=== PATIENT | female | born 1965 | race Caucasian/White ===

== ENCOUNTER 2018-07-04 11:40 | Emergency (ER) | payer OTHER ==
--- NOTE | 2018-07-04 12:05 | EDPHY ---
H & P Stated Complaint: lung pain and back pain for 3wks or so. Time Seen by Provider: 07/04/18 11:46 HPI/ROS: Chief Complaint: Back pain, cough, shortness of breath HPI: 53-year-old woman presenting with several weeks of worsening left upper back pain, occasional shortness of breath, cough. Patient states that feels like when she has had pneumonia before. She is also complaining of bilateral leg swelling. She says symptoms have been going on since she moved to [place] from [place] about a month ago. They have been worsening. She is unable to sleep because of the pain. Is occasionally hurts to take a deep breath. Cough is productive of occasional greenish sputum. Some subjective chills, no fever. No substernal chest pain. It is nonradiating. It does sometimes hurt to move around. She has been taking ibuprofen daily without any relief. No nausea or vomiting. No abdominal pain. Also complaining of a mild headache and general myalgias. ROS: 10 systems were reviewed and were negative except those elements noted in the HPI. PMH: Hypertension, hyperlipidemia, chronic back pain status post lumbar fusion Social History: Positive smoking Family History: non-contributory Physical Exam: Gen: Awake, Alert, No Distress HEENT: Nose: no rhinorrhea Eyes: PERRLA, EOMI Mouth: Moist mucosa Neck: Supple, no JVD Chest: nontender, lungs clear to auscultation Heart: S1, S2 normal, no murmur Abd: Soft, non-tender, no guarding Back: no CVA tenderness, no midline tenderness Ext: no edema, non-tender Skin: no rash Neuro: CN II-XII intact, Sensation grossly intact, Strength 5/5 in bilateral upper and lower extremities - Personal History LMP (Females 10-55): Hysterectomy Current Tetanus/Diphtheria Vaccine: No Current Tetanus Diphtheria and Acellular Pertussis (TDAP): No - Medical/Surgical History Other PMH: hysterectomy. C sec x 2. spinal fusion [id number]. Cholecystectomy. Hernia of diaphraghm - Social History Smoking Status: Light smoker Constitutional: Initial Vital Signs Temperature (C) 36.7 C 07/04/18 11:47 Heart Rate 76 07/04/18 11:47 Respiratory Rate 16 07/04/18 11:47 Blood Pressure 131/59 H 07/04/18 11:47 O2 Sat (%) 97 07/04/18 11:47 Allergies/Adverse Reactions: Penicillins Allergy (Verified 07/04/18 11:54) Home Medications: Medication Instructions Recorded Albuterol [Proventil Inhaler HFA 1 - 2 puffs IH Q4H PRN #1 mdi 07/04/18 (*)] Lidocaine 4% 07/04/18 Medical Decision Making - Diagnostics Imaging Results: Imaging Impressions Chest X-Ray 07/04/18 13:07 Impression: Mild perihilar bronchitis, without a focal infiltrate. ED Course/Re-evaluation: Patient's x-rays consistent with mild bronchitis. Her lungs are clear. Laboratory evaluations are otherwise unremarkable. Will discharge with albuterol inhaler with spacer. She will be referred to outpatient follow-up with primary care. - Data Points Laboratory Results: 07/04/18 12:20 POC Sodium 142 mEq/L mEq/L (135-145) POC Potassium 3.9 mEq/L mEq/L (3.3-5.0) POC Chloride 105.0 mEq/L mEq/L (97-110) POC Total CO2 25 mEq/L mEq/L (22-31) POC BUN 13 mg/dL mg/dL (7-23) POC Creatinine 0.9 mg/dL mg/dL (0.6-1.0) POC Glucose 92 mg/dL mg/dL (70-100) POC Calcium 9.4 mg/dL mg/dL (8.5-10.4) Point of Care Test Results: CBC CBC Collection Date 07/04/18 CBC Collection Time 13:10 WBC 5.9 RBC 4.55 HGB 15.1 HCT 43.9 PLT 327 Neut # 2.4 Neut 40 LYMPH # 3.0 LYMPH 50.9 Other WBC # 0.5 Other WBC 9.1 MCV 96.5 Chemistry 07/04/18 12:20 POC Sodium 142 mEq/L mEq/L (135-145) POC Potassium 3.9 mEq/L mEq/L (3.3-5.0) POC Chloride 105.0 mEq/L mEq/L (97-110) POC Total CO2 25 mEq/L mEq/L (22-31) POC BUN 13 mg/dL mg/dL (7-23) POC Creatinine 0.9 mg/dL mg/dL (0.6-1.0) POC Glucose 92 mg/dL mg/dL (70-100) POC Calcium 9.4 mg/dL mg/dL (8.5-10.4) D-Dimer D-Dimer Collection Date 07/04/18 D-Dimer Collection Time 12:10 D-Dimer (ng/ml) 110 Departure - Departure Disposition: Home, Routine, Self-Care Clinical Impression: Acute bronchitis Condition: Good Instructions: Acute Bronchitis (ED) Additional Instructions: Follow up with primary care physician in 3-4 days for re-evaluation. Return to the emergency department for increasing chest pain, shortness of breath, fevers, or any other concerns. Referrals: Vale Rivera MD [Medical Doctor] - As per Instructions Prescriptions: Albuterol [Proventil Inhaler HFA (*)] 1 - 2 puffs IH Q4H PRN #1 mdi PRN Reason: Wheezing
[2018-07-04 14:06] VITALS: BP 116/69
== END 2018-07-04 14:16 | disposition home or self-care (01) ==
LOC: CED 11:40
DX: J20.9 Acute bronchitis, unspecified (principal); F17.200 Nicotine dependence, unspecified, uncomplicated
CPT/HCPCS: 71046-PO; 80048-PO

== ENCOUNTER → 2018-09-12 | Outpatient (CLI) | payer OTHER | LOC: CIMAGING 12:59 | PROVIDERS: ATTEND Family Medicine | DX: R10.11 Right upper quadrant pain (principal); J98.6 Disorders of diaphragm; Z87.19 Personal history of other diseases of the digestive system | CPT/HCPCS: 71046-PO ==

== ENCOUNTER → 2018-10-12 | Outpatient (CLI) | payer OTHER, MEDICAID | LOC: FIMAGING 08:04 | PROVIDERS: ATTEND Surgery | DX: K21.9 Gastro-esophageal reflux disease without esophagitis (principal); K44.9 Diaphragmatic hernia without obstruction or gangrene; R93.3 Abnormal findings on diagnostic imaging of other parts of digestive tract ==

== ENCOUNTER → 2018-10-19 | Outpatient (CLI) | payer OTHER, MEDICAID ==
[~2018-10-19] MED LIST: IOPAMIDOL (ISOVUE-300) 100 ML BTL ONE
== END ==
LOC: CIMAGING 08:46
PROVIDERS: ATTEND Surgery
DX: N28.1 Cyst of kidney, acquired (principal); N20.0 Calculus of kidney; N28.81 Hypertrophy of kidney; K76.0 Fatty (change of) liver, not elsewhere classified; Z90.49 Acquired absence of other specified parts of digestive tract; Z98.890 Other specified postprocedural states
CPT/HCPCS: 74177; Q9967

== ENCOUNTER 2018-11-02 05:53 | Day surgery (SDC) | payer OTHER, MEDICAID ==
[2018-11-02] MEDS ORDERED: LR 1,000 ML IV ONE (06:07)
--- NOTE | 2018-11-02 07:10 | PDHPUP ---
History & Physical Update H&P update statement: This history and physical update is based on an assessment of the patient which was completed after admission or registration (within 24 hours), but prior to the surgery/procedure. H&P update: H&P reviewed & patient examined, no change in patient's condition since H&P completed
[2018-11-02] MEDS ORDERED: PROPOFOL/EMULSION 500 MG/50 ML BOTTLE IV ONE (07:28)
[2018-11-02] MEDS ORDERED: MIDAZOLAM 2 MG/2 ML VIAL ONE (07:28)
[2018-11-02] MEDS ORDERED: MAGNESIUM SULFATE 1 GM/2 ML VIAL ONE (07:42)
[2018-11-02] MEDS ORDERED: PROPOFOL 200 MG/20 ML VIAL ONE (07:52)
[2018-11-02] MEDS ORDERED: ONDANSETRON 4 MG/2 ML VIAL IVP PRN (08:04)
[2018-11-02] MEDS ORDERED: ALBUTEROL 3 ML DEYVIAL IH PRN (08:04)
[2018-11-02] MEDS ORDERED: NALOXONE HCL 0.4 MG/ML INJ IVP PRN (08:04)
[2018-11-02] MEDS ORDERED: DEXAMETHASONE 4 MG/ML VIAL IVP PRN (08:04)
--- NOTE | 2018-11-02 08:04 | PDANEPAE ---
ANE Past Medical History - Cardiovascular History Hx Hypertension: No Hx Arrhythmias: No Hx Chest Pain: No Hx Coronary Artery / Peripheral Vascular Disease: No Hx CHF / Valvular Disease: No Hx Palpitations: No - Pulmonary History Hx COPD: No Hx Asthma/Reactive Airway Disease: No Hx Recent Upper Respiratory Infection: No Hx Oxygen in Use at Home: No Hx Sleep Apnea: No Sleep Apnea Screening Result - Last Documented: Negative - Neurologic History Hx Cerebrovascular Accident: No Hx Seizures: No Hx Dementia: No - Endocrine History Hx Diabetes: No - Renal History Hx Renal Disorders: No - Neurological & Psychiatric Hx Hx Neurological and Psychiatric Disorders: Yes Neurological / Psychiatric History Comment: left leg numb from back surgery - Cancer History Hx Cancer: No - Congenital Disorder History Hx Congenital Disorders: No - GI History Hx Gastrointestinal Disorders: Yes Gastrointestinal History Comment: difficulty swallowing. acid reflux,bloating gas,diverticulitis - Other Health History Other Health History: dentures upper and lower - Chronic Pain History Chronic Pain: Yes (lower back) - Surgical History Prior Surgeries: hernia repair 2015. 2007 ant fusion L4-S1 ANE Review of Systems Review of Systems: - Exercise capacity METS (RN): 4 METS ANE Patient History - Allergies Allergies/Adverse Reactions: ketorolac [From Toradol] Allergy (Verified 11/01/18 14:52) Hives Penicillins Allergy (Verified 11/01/18 14:52) Hives - Home Medications Home Medications: Albuterol [Proventil Inhaler HFA (*)] 11/01/18 [Last Taken 2 Weeks Ago ~] Bath 10/325 (*) 11/01/18 [Last Taken 11/01/18] Protonix 11/02/18 [Last Taken 10/31/18] - NPO status NPO Since - Liquids (Date): 11/01/18 NPO Since - Liquids (Time): 22:30 NPO Since - Solids (Date): 11/01/18 NPO Since - Solids (Time): 19:00 - Smoking Hx Smoking Status: Light smoker - Family Anes Hx Family Hx Anesthesia Complications: none ANE Labs/Vital Signs - Vital Signs Blood Pressure: 130/67 Heart Rate: 87 Respiratory Rate: 18 O2 Sat (%): 94 Height: 170.18 cm Weight: 99.79 kg ANE Physical Exam - Airway Neck exam: FROM Mallampati Score: Class 2 Mouth exam: normal dental/mouth exam, dentures - Pulmonary Pulmonary: no respiratory distress, no rales or rhonchi - Cardiovascular Cardiovascular: regular rate and rhythym, no murmur, rub, or gallop - ASA Status ASA Status: III ANE Anesthesia Plan Anesthesia Plan: GA with mask
[2018-11-02] MEDS ORDERED: ALBUTEROL 3 ML DEYVIAL ONE (08:10)
--- NOTE | 2018-11-02 08:10 | POSTANESTH ---
Post Anesthetic Evaluation Cardiovascular Status: Normal, Stable, Similar to Pre-Op Cond Respiratory Status: Normal, Stable, Similar to Pre-op Cond. Level of Consciousness/Mental Status: Can Participate in Eval Pain Control: Adequate, Prn Tx Ordered Nausea/Vomiting Control: Adequate, Prn Tx Ordered Complications Possibly Related to Anesthesia: None Noted
--- NOTE | 2018-11-02 08:10 | GIREPORT ---
[facility] Surgical Services - Endoscopy Department Patient Name: Valeri Martino Procedure Date: 11/02/2018 7:31 AM Patient Type: Outpatient Attending MD/ ER Physician: Talat Muniz MD Procedure: Upper GI endoscopy Indications: Dysphagia, Gastro-esophageal reflux disease Patient Profile: The patient is status post laparoscopic Morgagni hernia surgery within the past several years. Providers: Talat Muniz MD Medicines: Monitored Anesthesia Care Complications: No immediate complications. Description of Procedure: After obtaining informed consent, the endoscope was passed under direct vision. Throughout the procedure, the patient's blood pressure, pulse, and oxygen saturations were monitored continuously. The Endoscope was intro duced through the mouth, and advanced to the third part of duodenum. The uppe r GI endoscopy was accomplished with ease. The patient tolerated the procedu re fairly well with transient brochospasm. Findings: The nasopharynx and oropharynx were normal. LA Grade B (one or more mucosal breaks greater than 5 mm, not extending between the tops of two mucosal folds) esophagitis with no bleeding was found 35 cm from the incisors. Biopsies were taken with a cold forceps for histology. Estimated blood loss: none. Patchy mild inflammation characterized by erythema was found in the prepyloric region of the stomach. Biopsies were taken with a cold force ps for Helicobacter pylori testing. Estimated blood loss was minimal. Patchy mildly erythematous mucosa without active bleeding and with no stigmata of bleeding was found in the second portion of the duodenum. Biopsies were taken with a cold forceps for histology. Estimated blood loss was minimal. One benign-appearing, intrinsic stenosis was found 35 cm from the incis ors. This stenosis was moderately severe and measured 5 mm (inner diameter) x 3 cm (in length). The stenosis was traversed. A guidewire was placed and the scope was withdrawn. Dilation was performed with a Savary dilator with no resistance at 48 Fr. The dilation site was examined following endoscope reinsertion and showed complete resolution of luminal narrowing. Estima lelo blood loss was minimal. Estimated Blood Loss: Estimated blood loss was minimal. Post Op Diagnosis: - Normal nasopharynx and oropharynx. - LA Grade B reflux esophagitis. Biopsied. - Gastritis. Biopsied. - Erythematous duodenopathy. Biopsied. - Benign-appearing esophageal stenosis. Dilated. Recommendation: - Discharge patient to home (ambulatory). - Written discharge instructions were provided to the patient. - Follow an antireflux regimen for the rest of the patient's life. - Continue present medications. - Return to my office in 4 weeks. - Use Protonix (pantoprazole) 40 mg PO daily indefinitely. Attending Participation: I personally performed the entire procedure. Talat Sesay Talat Muniz MD 11/02/2018 8:09:57 AM Number of Addenda: 0 Note Initiated On: 11/02/2018 7:31 AM [email or web address]
[2018-11-02 09:46] VITALS: BP 117/68
== END 2018-11-02 09:30 | disposition home or self-care (01) ==
LOC: FSGY 05:53
PROVIDERS: ATTEND Surgery
PROC: 0DB38ZX Excision of Lower Esophagus, Via Natural or Artificial Opening Endoscopic, Diagnostic (ICD-10-PCS; principal; 2018-11-02 07:30)
PROC: 0DB98ZX Excision of Duodenum, Via Natural or Artificial Opening Endoscopic, Diagnostic (ICD-10-PCS; principal; 2018-11-02 07:30)
PROC: 0DB68ZX Excision of Stomach, Via Natural or Artificial Opening Endoscopic, Diagnostic (ICD-10-PCS; principal; 2018-11-02 07:30)
DX: K29.50 Unspecified chronic gastritis without bleeding (principal); K21.9 Gastro-esophageal reflux disease without esophagitis; K22.2 Esophageal obstruction; E78.5 Hyperlipidemia, unspecified; R13.10 Dysphagia, unspecified
CPT/HCPCS: J2250; J2704; J3475; J7613